=== PATIENT | male | born 1955 | race Caucasian/White ===

== ENCOUNTER 2016-12-17 15:15 | Inpatient (IN) | payer MEDICARE, OTHER ==
[~2016-12-17] VITALS: Ht 185.4 cm; Wt 110.7 kg
[2016-12-17] MEDS ORDERED: SODIUM CHLORIDE 0.9% 1,000 ML IV ONE (15:34)
[2016-12-17] MEDS ORDERED: LISI2.5T PO (15:40)
[2016-12-17] MEDS ORDERED: CITA10TA4 PO (15:40)
[2016-12-17] MEDS ORDERED: POTA20PA PO (15:40)
[2016-12-17] MEDS ORDERED: GABA300C10 PO (15:40)
[2016-12-17] MEDS ORDERED: ATOR80TA75 PO (15:40)
[2016-12-17] MEDS ORDERED: FURO20TA3 PO (15:40)
[2016-12-17] MEDS ORDERED: THIAMINE 100 MG/ML, 2ML ONE (15:43)
[2016-12-17] MEDS ORDERED: SODIUM CHLORIDE FLUSH 10ML SYR IVF ONE (16:00)
[2016-12-17] MEDS ORDERED: THIAMINE 100 MG/ML, 2ML IM ONE (16:00)
[2016-12-17] MEDS ORDERED: SODIUM CHLORIDE 0.9% 1,000ML IVBOLUS ONE (16:00)
[2016-12-17 16:13] LABS: HEMOGLOBIN 11.3 g/dL (13.7-18.0)
[2016-12-17 16:25] LABS: ASPARTATE AMINO TRANSFERASE 88 U/L (15-37); BLOOD UREA NITROGEN 10 mg/dL (7-18)
[2016-12-17 16:40] LABS: IS PT STATUS REG ER OR PRE ER? YES
[2016-12-17 16:50] LABS: DIFF TOTAL CELLS COUNTED 100 CELL DIFF
[2016-12-17 16:58] LABS: ANISOCYTOSIS 2+; MICROCYTOSIS 1+
[2016-12-17 16:59] LABS: LARGE PLATELETS 1+; VERIFY COUNTS? YES
[2016-12-17] MEDS ORDERED: PIPERACILLIN/TAZO/PMX 3.375GM 50 ML IV ONE (17:30)
[2016-12-17] MEDS ORDERED: PIPERACILLIN/TAZO/PMX 3.375GM 50 ML ONE (17:33)
[2016-12-17 17:36] LABS: DAU SCREEN DISCLAIMER
[2016-12-17] MEDS ORDERED: METH-356 PO (18:36)
[2016-12-17] MEDS: NOREPINEPHRINE 4 MG in SODIUM CHLORIDE 0.9% 246 ML IV PRN ×2 (19:53→20:28)
[2016-12-17] MEDS: SODIUM CHLORIDE 0.9% 1,000 ML IV SCH ×2 (20:10→21:24)
[2016-12-17] MEDS ORDERED: POLYETHYLENE GLYCOL 17 GM PACKET PO PRN (20:30)
[2016-12-17] MEDS: AMPICILLIN/SULBACTAM 3 GM in SODIUM CHLORIDE 0.9% 100 ML IV SCH (20:30)
[2016-12-17] MEDS ORDERED: DOCUSATE 100 MG CAPSULE PO PRN (20:30)
[2016-12-17] MEDS ORDERED: BISACODYL 10 MG SUPP PR PRN (20:30)
[2016-12-17] MEDS ORDERED: ONDANSETRON ODT 4 MG PO PRN (20:30)
[2016-12-17] MEDS ORDERED: AZITHROMYCIN 500 MG in SODIUM CHLORIDE 0.9% 250 ML IV SCH (20:30)
[2016-12-17] MEDS ORDERED: LABETALOL 5MG/ML, 20ML IV PRN (20:30)
[2016-12-17] MEDS ORDERED: ACETAMINOPHEN 325 MG TABLET PO PRN (20:30)
[2016-12-17] MEDS: ATORVASTATIN 80 MG TABLET PO SCH (21:00)
[2016-12-17] MEDS: DOXYCYCLINE 100 MG in DEXTROSE 5% 250 ML IV SCH (21:33)
[2016-12-17] MEDS: ENOXAPARIN 40 MG/0.4 ML SQ SCH (22:38)
[2016-12-17] MEDS: GABAPENTIN 300 MG CAPSULE PO SCH (22:38)
[2016-12-17] MEDS: NICOTINE 14MG/24 HR PATCH.TD24 TD SCH (22:39)
[2016-12-18] MEDS: AMPICILLIN/SULBACTAM 3 GM in SODIUM CHLORIDE 0.9% 100 ML IV SCH ×4 (02:37→20:16)
[2016-12-18 04:00] VITALS: BP 89/64
[2016-12-18] MEDS ORDERED: NOREPINEPHRINE 4 MG in SODIUM CHLORIDE 0.9% 246 ML IV PRN (05:00)
[2016-12-18 05:25] LABS: HEMOGLOBIN 9.9 g/dL (13.7-18.0)
[2016-12-18] MEDS: ALBUMIN HUMAN 25% 100 ML IV SCH ×3 (05:33→20:17)
[2016-12-18 05:43] LABS: ASPARTATE AMINO TRANSFERASE 71 U/L (15-37); BLOOD UREA NITROGEN 7 mg/dL (7-18); TOTAL IRON BINDING CAPACITY 92 mcg/dL (250-450)
[2016-12-18 06:13] LABS: DIFF TOTAL CELLS COUNTED 100 CELL DIFF
[2016-12-18 06:17] LABS: ANISOCYTOSIS 1+
[2016-12-18 06:18] LABS: LARGE PLATELETS 1+
[2016-12-18 06:32] LABS: VERIFY COUNTS? YES
[2016-12-18] MEDS ORDERED: MAGNESIUM SULFATE PMX 4GM/100M 100 ML IV ONE (08:00)
[2016-12-18] MEDS ORDERED: INSULIN REGULAR 100 UNITS/ML, 3ML VIAL ONE (08:12)
[2016-12-18] MEDS: POTASSIUM CHLORIDE 20 MEQ, MAGNESIUM SULFATE 1 GM, FOLIC ACID 1 MG, THIAMINE 100 MG, MV... IV SCH (09:16)
[2016-12-18] MEDS: POTASSIUM CHLORIDE 20 MEQ TAB.ER.PRT PO SCH ×2 (09:17→16:25)
[2016-12-18] MEDS: DOXYCYCLINE 100 MG in DEXTROSE 5% 250 ML IV SCH ×2 (09:17→20:17)
[2016-12-18] MEDS: GABAPENTIN 300 MG CAPSULE PO SCH ×3 (09:18→20:18)
[2016-12-18] MEDS: CITALOPRAM 10 MG TABLET PO SCH (09:18)
[2016-12-18] MEDS: THIAMINE 100MG TABLET PO SCH (09:18)
[2016-12-18] MEDS: FOLIC ACID 1 MG TABLET PO SCH (09:18)
[2016-12-18] MEDS: METHADONE 10 MG TABLET PO SCH (09:23)
[2016-12-18] MEDS: NOREPINEPHRINE 8 MG in SODIUM CHLORIDE 0.9% 246 ML IV PRN ×2 (12:16→18:59)
[2016-12-18] MEDS ORDERED: CALCIUM CHLORIDE 13.6 MEQ in SODIUM CHLORIDE 0.9% 100 ML IV ONE (17:30)
[2016-12-18] MEDS ORDERED: LABETALOL 5MG/ML, 20ML IV PRN (19:44)
[2016-12-18] MEDS ORDERED: LIDOCAINE GEL 2%, 5ML TP ONE (20:00)
[2016-12-18] MEDS ORDERED: SODIUM CHLORIDE 0.9% 1,000 ML IV SCH (20:10)
[2016-12-18] MEDS: NICOTINE 14MG/24 HR PATCH.TD24 TD SCH (20:17)
[2016-12-18] MEDS: ENOXAPARIN 40 MG/0.4 ML SQ SCH (20:17)
[2016-12-18] MEDS: ATORVASTATIN 80 MG TABLET PO SCH (20:18)
[2016-12-18] MEDS: OMEPRAZOLE 20 MG CAPSULE.DR PO SCH (20:18)
[2016-12-19] MEDS: NOREPINEPHRINE 8 MG in SODIUM CHLORIDE 0.9% 246 ML IV PRN ×2 (00:01→22:00)
[2016-12-19 00:09] LABS: ASPARTATE AMINO TRANSFERASE 49 U/L (15-37)
[2016-12-19 00:11] LABS: BLOOD UREA NITROGEN 4 mg/dL (7-18)
[2016-12-19] MEDS ORDERED: CALCIUM CHLORIDE 13.6 MEQ in SODIUM CHLORIDE 0.9% 100 ML IV ONE (00:30)
[2016-12-19] MEDS ORDERED: POTASSIUM CHLORIDE 40 MEQ in SODIUM CHLORIDE 0.9% 100 ML IV ONE (00:30)
[2016-12-19] MEDS: LORazepam 2 MG/ML, 1ML IVPush PRN (02:49)
[2016-12-19] MEDS: AMPICILLIN/SULBACTAM 3 GM in SODIUM CHLORIDE 0.9% 100 ML IV SCH ×4 (02:49→19:28)
[2016-12-19] MEDS: ALBUMIN HUMAN 25% 100 ML IV SCH ×3 (04:54→21:23)
[2016-12-19 05:09] LABS: ASPARTATE AMINO TRANSFERASE 44 U/L (15-37); BLOOD UREA NITROGEN 4 mg/dL (7-18)
[2016-12-19 05:45] VITALS: BP 99/56
[2016-12-19 06:31] LABS: DIFF TOTAL CELLS COUNTED 100 CELL DIFF
[2016-12-19 06:36] LABS: ANISOCYTOSIS 1+
[2016-12-19 06:38] LABS: VERIFY COUNTS? YES
[2016-12-19] MEDS: DOXYCYCLINE 100 MG in DEXTROSE 5% 250 ML IV SCH ×2 (07:36→19:58)
[2016-12-19] MEDS: METHADONE 10 MG TABLET PO SCH (07:41)
[2016-12-19] MEDS ORDERED: SUCCINYLCHOLINE 20 MG/ML, 10ML ONE (08:00)
[2016-12-19] MEDS ORDERED: ETOMIDATE 20 MG/10 ML ONE (08:00)
[2016-12-19] MEDS: POTASSIUM CHLORIDE 20 MEQ, MAGNESIUM SULFATE 1 GM, FOLIC ACID 1 MG, THIAMINE 100 MG, MV... IV SCH (08:00)
[2016-12-19] MEDS: GABAPENTIN 300 MG CAPSULE PO SCH ×3 (09:11→19:57)
[2016-12-19] MEDS: FOLIC ACID 1 MG TABLET PO SCH (09:11)
[2016-12-19] MEDS: OMEPRAZOLE 20 MG CAPSULE.DR PO SCH ×2 (09:11→19:57)
[2016-12-19] MEDS: POTASSIUM CHLORIDE 20 MEQ TAB.ER.PRT PO SCH (09:11)
[2016-12-19] MEDS: CITALOPRAM 10 MG TABLET PO SCH (09:11)
[2016-12-19] MEDS: THIAMINE 100MG TABLET PO SCH (09:11)
[2016-12-19] MEDS: FUROSEMIDE 20 MG/2 ML IV SCH ×2 (09:44→16:08)
[2016-12-19] MEDS ORDERED: MAGNESIUM SULFATE PMX 2GM/50ML 50 ML IV ONE (10:00)
[2016-12-19 11:45] LABS: ABG COLLECTION SITE RIGHT RADIAL; COLLATERAL CIRCULATION TESTING NORMAL
[2016-12-19] MEDS ORDERED: FUROSEMIDE 20 MG/2 ML IV ONE (12:00)
[2016-12-19] MEDS ORDERED: METOLAZONE 5 MG TABLET PO ONE (13:30)
[2016-12-19] MEDS ORDERED: LIDOCAINE-MPF 1%, 2ML ENDO PRN (15:30)
[2016-12-19] MEDS ORDERED: LACTULOSE 20 GM/30 ML UDC NG PRN (15:30)
[2016-12-19] MEDS ORDERED: PHARMACY MAY ADJ FOR RENAL FX MC SCH (15:30)
[2016-12-19 15:49] LABS: ABG COLLECTION SITE RIGHT RADIAL; COLLATERAL CIRCULATION TESTING NOT DOCUMENTED
[2016-12-19] MEDS: PROPOFOL 100 ML IV PRN ×2 (16:49→21:18)
[2016-12-19] MEDS: POTASSIUM CHLORIDE 20 MEQ PACKET PO SCH (17:01)
[2016-12-19] MEDS: ENOXAPARIN 40 MG/0.4 ML SQ SCH (19:58)
[2016-12-19] MEDS: NICOTINE 14MG/24 HR PATCH.TD24 TD SCH (19:58)
[2016-12-19] MEDS: ATORVASTATIN 80 MG TABLET PO SCH (19:58)
[2016-12-19] MEDS: SODIUM CHLORIDE 0.9% 1,000 ML IV SCH (20:10)
[2016-12-19] MEDS: ALBUTEROL SULFATE 2.5 MG/3 ML NPPB SCH (22:48)
[2016-12-20] MEDS: AMPICILLIN/SULBACTAM 3 GM in SODIUM CHLORIDE 0.9% 100 ML IV SCH ×4 (02:21→19:53)
[2016-12-20] MEDS: FUROSEMIDE 20 MG/2 ML IV SCH ×3 (02:21→18:29)
[2016-12-20] MEDS: ALBUTEROL SULFATE 2.5 MG/3 ML NPPB SCH ×6 (02:48→21:40)
[2016-12-20 03:50] VITALS: BP 91/68
[2016-12-20 04:35] LABS: ASPARTATE AMINO TRANSFERASE 26 U/L (15-37); BLOOD UREA NITROGEN 4 mg/dL (7-18)
[2016-12-20 04:48] LABS: ABG COLLECTION SITE RIGHT RADIAL; COLLATERAL CIRCULATION TESTING NORMAL
[2016-12-20] MEDS: ALBUMIN HUMAN 25% 100 ML IV SCH ×3 (05:13→21:59)
[2016-12-20] MEDS: PROPOFOL 100 ML IV PRN ×3 (05:13→20:11)
[2016-12-20] MEDS: DOXYCYCLINE 100 MG in DEXTROSE 5% 250 ML IV SCH ×2 (08:24→20:49)
[2016-12-20] MEDS: POTASSIUM CHLORIDE 20 MEQ PACKET PO SCH ×2 (08:24→18:29)
[2016-12-20] MEDS: METHADONE 10 MG TABLET PO SCH (09:00)
[2016-12-20] MEDS: FOLIC ACID 1 MG TABLET PO SCH (09:56)
[2016-12-20] MEDS: THIAMINE 100MG TABLET PO SCH (09:56)
[2016-12-20] MEDS: CITALOPRAM 10 MG TABLET PO SCH (09:56)
[2016-12-20] MEDS: GABAPENTIN 300 MG CAPSULE PO SCH ×3 (09:56→19:53)
[2016-12-20] MEDS: OMEPRAZOLE 20 MG CAPSULE.DR PO SCH ×2 (09:56→19:53)
[2016-12-20] MEDS: NOREPINEPHRINE 8 MG in SODIUM CHLORIDE 0.9% 246 ML IV PRN ×2 (09:58→20:10)
[2016-12-20] MEDS: POTASSIUM CHLORIDE 20 MEQ, MAGNESIUM SULFATE 1 GM, FOLIC ACID 1 MG, THIAMINE 100 MG, MV... IV SCH (11:23)
[2016-12-20] MEDS: ATORVASTATIN 80 MG TABLET PO SCH (19:52)
[2016-12-20] MEDS: NICOTINE 14MG/24 HR PATCH.TD24 TD SCH (19:53)
[2016-12-20] MEDS: ENOXAPARIN 40 MG/0.4 ML SQ SCH (19:53)
[2016-12-20] MEDS: SODIUM CHLORIDE 0.9% 1,000 ML IV SCH (20:50)
[2016-12-21] MEDS: FUROSEMIDE 20 MG/2 ML IV SCH (01:05)
[2016-12-21] MEDS: ALBUTEROL SULFATE 2.5 MG/3 ML NPPB SCH ×6 (02:00→22:19)
[2016-12-21] MEDS: AMPICILLIN/SULBACTAM 3 GM in SODIUM CHLORIDE 0.9% 100 ML IV SCH ×4 (02:07→20:19)
[2016-12-21] MEDS: PROPOFOL 100 ML IV PRN ×4 (02:26→23:46)
[2016-12-21 04:18] LABS: ABG COLLECTION SITE LEFT RADIAL; COLLATERAL CIRCULATION TESTING NORMAL
[2016-12-21 04:31] VITALS: BP 94/66
[2016-12-21 04:33] LABS: BLOOD UREA NITROGEN 6 mg/dL (7-18)
[2016-12-21 04:34] LABS: HEMOGLOBIN 9.6 g/dL (13.7-18.0)
[2016-12-21] MEDS: ALBUMIN HUMAN 25% 100 ML IV SCH (04:48)
[2016-12-21] MEDS: NOREPINEPHRINE 8 MG in SODIUM CHLORIDE 0.9% 246 ML IV PRN ×2 (04:52→22:17)
[2016-12-21] MEDS: CITALOPRAM 10 MG TABLET PO SCH (08:09)
[2016-12-21] MEDS: DOXYCYCLINE 100 MG in DEXTROSE 5% 250 ML IV SCH ×2 (08:09→21:05)
[2016-12-21] MEDS: GABAPENTIN 300 MG CAPSULE PO SCH ×3 (08:09→20:18)
[2016-12-21] MEDS: FOLIC ACID 1 MG TABLET PO SCH (08:09)
[2016-12-21] MEDS: THIAMINE 100MG TABLET PO SCH (08:09)
[2016-12-21] MEDS: OMEPRAZOLE 20 MG CAPSULE.DR PO SCH (08:09)
[2016-12-21] MEDS: POTASSIUM CHLORIDE 20 MEQ PACKET PO SCH ×2 (08:09→17:07)
[2016-12-21] MEDS: METHADONE 10 MG TABLET PO SCH (08:09)
[2016-12-21] MEDS ORDERED: MAGNESIUM SULFATE PMX 2GM/50ML 50 ML IV ONE ×2 (09:00→17:00)
[2016-12-21] MEDS: PANTOPRAZOLE 40 MG IV IVPush SCH ×2 (11:44→20:18)
[2016-12-21] MEDS ORDERED: CALCIUM CHLORIDE 13.6 MEQ in SODIUM CHLORIDE 0.9% 100 ML IV ONE (17:00)
[2016-12-21] MEDS: ATORVASTATIN 80 MG TABLET PO SCH (20:18)
[2016-12-21] MEDS: QUETIAPINE 25MG TABLET PO SCH (20:18)
[2016-12-21] MEDS: ENOXAPARIN 40 MG/0.4 ML SQ SCH (20:18)
[2016-12-21] MEDS: NICOTINE 14MG/24 HR PATCH.TD24 TD SCH (20:19)
[2016-12-21] MEDS ORDERED: SODIUM CHLORIDE 0.9% 1,000ML IVBOLUS ONE (22:00)
[2016-12-21] MEDS ORDERED: VASOPRESSIN 100 UNIT in SODIUM CHLORIDE 0.9% 495 ML IV PRN (22:00)
[2016-12-21] MEDS: SODIUM CHLORIDE 0.9% 1,000 ML IV SCH (23:47)
[2016-12-22] MEDS: ALBUTEROL SULFATE 2.5 MG/3 ML NPPB SCH ×6 (01:47→22:33)
[2016-12-22] MEDS: AMPICILLIN/SULBACTAM 3 GM in SODIUM CHLORIDE 0.9% 100 ML IV SCH ×4 (02:51→19:47)
[2016-12-22] MEDS: NOREPINEPHRINE 8 MG in SODIUM CHLORIDE 0.9% 246 ML IV PRN ×3 (02:52→20:10)
[2016-12-22] MEDS ORDERED: OMNIPAQUE 350 MG/ML, 75ML BOTTLE ONE (03:26)
[2016-12-22] MEDS: PROPOFOL 100 ML IV PRN ×3 (03:32→20:12)
[2016-12-22 04:00] VITALS: BP 97/71
[2016-12-22 04:17] LABS: HEMOGLOBIN 9.8 g/dL (13.7-18.0)
[2016-12-22 04:18] LABS: ABG COLLECTION SITE RIGHT RADIAL
[2016-12-22 04:19] LABS: COLLATERAL CIRCULATION TESTING NORMAL
[2016-12-22 04:26] LABS: BLOOD UREA NITROGEN 7 mg/dL (7-18)
[2016-12-22] MEDS: POTASSIUM CHLORIDE 20 MEQ PACKET PO SCH ×2 (09:12→17:36)
[2016-12-22] MEDS: GABAPENTIN 300 MG CAPSULE PO SCH ×3 (09:12→21:11)
[2016-12-22] MEDS: CITALOPRAM 10 MG TABLET PO SCH (09:12)
[2016-12-22] MEDS: PANTOPRAZOLE 40 MG IV IVPush SCH ×2 (09:12→21:11)
[2016-12-22] MEDS: THIAMINE 100MG TABLET PO SCH (09:12)
[2016-12-22] MEDS: FOLIC ACID 1 MG TABLET PO SCH (09:13)
[2016-12-22] MEDS: QUETIAPINE 25MG TABLET PO SCH ×2 (09:13→21:11)
[2016-12-22] MEDS: METHADONE 10 MG TABLET PO SCH (09:22)
[2016-12-22] MEDS: DOXYCYCLINE 100 MG in DEXTROSE 5% 250 ML IV SCH ×2 (10:19→21:11)
[2016-12-22] MEDS ORDERED: SODIUM CHLORIDE 0.9%, 500ML IVBOLUS ONE ×2 (11:00→16:00)
[2016-12-22] MEDS: SODIUM CHLORIDE 0.9% 1,000 ML IV SCH (20:10)
[2016-12-22] MEDS: ATORVASTATIN 80 MG TABLET PO SCH (21:11)
[2016-12-22] MEDS: NICOTINE 14MG/24 HR PATCH.TD24 TD SCH (21:12)
[2016-12-22] MEDS: ENOXAPARIN 40 MG/0.4 ML SQ SCH (21:12)
[2016-12-23] MEDS: AMPICILLIN/SULBACTAM 3 GM in SODIUM CHLORIDE 0.9% 100 ML IV SCH ×4 (02:02→20:51)
[2016-12-23] MEDS: ALBUTEROL SULFATE 2.5 MG/3 ML NPPB SCH ×6 (02:35→22:19)
[2016-12-23] MEDS: PROPOFOL 100 ML IV PRN ×3 (03:27→16:22)
[2016-12-23 04:00] VITALS: BP 100/60
[2016-12-23 04:53] LABS: BLOOD UREA NITROGEN 9 mg/dL (7-18)
[2016-12-23 06:04] LABS: ABG COLLECTION SITE RIGHT RADIAL; COLLATERAL CIRCULATION TESTING NORMAL
[2016-12-23] MEDS: NOREPINEPHRINE 8 MG in SODIUM CHLORIDE 0.9% 246 ML IV PRN (07:48)
[2016-12-23] MEDS ORDERED: MAGNESIUM SULFATE PMX 4GM/100M 100 ML IVPB ONE (09:00)
[2016-12-23] MEDS ORDERED: FUROSEMIDE 20 MG/2 ML IV ONE (09:00)
[2016-12-23] MEDS: DOXYCYCLINE 100 MG in DEXTROSE 5% 250 ML IV SCH ×2 (09:08→21:48)
[2016-12-23] MEDS: PANTOPRAZOLE 40 MG IV IVPush SCH ×2 (09:08→20:52)
[2016-12-23] MEDS: POTASSIUM CHLORIDE 20 MEQ PACKET PO SCH ×2 (09:08→16:17)
[2016-12-23] MEDS: CITALOPRAM 10 MG TABLET PO SCH (09:09)
[2016-12-23] MEDS: FOLIC ACID 1 MG TABLET PO SCH (09:09)
[2016-12-23] MEDS: GABAPENTIN 300 MG CAPSULE PO SCH ×3 (09:09→20:56)
[2016-12-23] MEDS: THIAMINE 100MG TABLET PO SCH (09:10)
[2016-12-23] MEDS: QUETIAPINE 25MG TABLET PO SCH ×2 (09:10→20:56)
[2016-12-23] MEDS: METHADONE 10 MG TABLET PO SCH (09:31)
[2016-12-23] MEDS: NICOTINE 14MG/24 HR PATCH.TD24 TD SCH (20:51)
[2016-12-23] MEDS: ENOXAPARIN 40 MG/0.4 ML SQ SCH (20:52)
[2016-12-23] MEDS: ATORVASTATIN 80 MG TABLET PO SCH (20:56)
[2016-12-24] MEDS: PROPOFOL 100 ML IV PRN ×4 (00:12→23:20)
[2016-12-24] MEDS: NOREPINEPHRINE 8 MG in SODIUM CHLORIDE 0.9% 246 ML IV PRN ×3 (00:59→23:20)
[2016-12-24] MEDS: ALBUTEROL SULFATE 2.5 MG/3 ML NPPB SCH ×6 (02:20→22:37)
[2016-12-24] MEDS: AMPICILLIN/SULBACTAM 3 GM in SODIUM CHLORIDE 0.9% 100 ML IV SCH ×2 (03:50→08:32)
[2016-12-24 04:31] LABS: HEMOGLOBIN 9.2 g/dL (13.7-18.0)
[2016-12-24 05:26] LABS: ABG COLLECTION SITE LEFT RADIAL; COLLATERAL CIRCULATION TESTING NORMAL
[2016-12-24 06:34] LABS: BLOOD UREA NITROGEN 9 mg/dL (7-18)
[2016-12-24] MEDS: SODIUM CHLORIDE 0.9% 1,000 ML IV SCH (08:00)
[2016-12-24] MEDS: FOLIC ACID 1 MG TABLET PO SCH (09:24)
[2016-12-24] MEDS: GABAPENTIN 300 MG CAPSULE PO SCH ×3 (09:24→21:40)
[2016-12-24] MEDS: METHADONE 10 MG TABLET PO SCH (09:24)
[2016-12-24] MEDS: THIAMINE 100MG TABLET PO SCH (09:24)
[2016-12-24] MEDS: QUETIAPINE 25MG TABLET PO SCH ×2 (09:25→21:39)
[2016-12-24] MEDS: CITALOPRAM 10 MG TABLET PO SCH (09:25)
[2016-12-24] MEDS: PANTOPRAZOLE 40 MG IV IVPush SCH ×2 (09:25→21:38)
[2016-12-24] MEDS: POTASSIUM CHLORIDE 20 MEQ PACKET PO SCH ×2 (09:25→17:27)
[2016-12-24] MEDS: DOXYCYCLINE 100 MG in DEXTROSE 5% 250 ML IV SCH (09:26)
[2016-12-24] MEDS ORDERED: PHARMACOKINETIC CONSULTATION MC ONE (12:30)
[2016-12-24] MEDS ORDERED: PHARMACOKINETIC MONITORING MC PRN (12:30)
[2016-12-24] MEDS ORDERED: VANCOMYCIN PER PHARMACY MC PRN (12:30)
[2016-12-24] MEDS: PIPERACILLIN/TAZO/PMX 4.5GM 100 ML IV SCH ×2 (12:35→18:27)
[2016-12-24] MEDS: VANCOMYCIN 2,000 MG in SODIUM CHLORIDE 0.9% 500 ML IV SCH (13:38)
[2016-12-24] MEDS: NICOTINE 14MG/24 HR PATCH.TD24 TD SCH (20:17)
[2016-12-24] MEDS: ENOXAPARIN 40 MG/0.4 ML SQ SCH (20:18)
[2016-12-24] MEDS: LORazepam 2 MG/ML, 1ML IVPush PRN (20:22)
[2016-12-24] MEDS: ATORVASTATIN 80 MG TABLET PO SCH (21:38)
[2016-12-25] MEDS: PIPERACILLIN/TAZO/PMX 4.5GM 100 ML IV SCH ×2 (00:12→05:55)
[2016-12-25] MEDS: VANCOMYCIN 2,000 MG in SODIUM CHLORIDE 0.9% 500 ML IV SCH (01:18)
[2016-12-25] MEDS: ALBUTEROL SULFATE 2.5 MG/3 ML NPPB SCH ×3 (02:15→10:56)
[2016-12-25 03:36] LABS: HEMOGLOBIN 8.9 g/dL (13.7-18.0)
[2016-12-25 03:39] LABS: BLOOD UREA NITROGEN 10 mg/dL (7-18)
[2016-12-25] MEDS: PROPOFOL 100 ML IV PRN (04:18)
[2016-12-25 04:32] LABS: ABG COLLECTION SITE RIGHT RADIAL; COLLATERAL CIRCULATION TESTING NORMAL
[2016-12-25 05:30] VITALS: BP 104/63
[2016-12-25] MEDS: NOREPINEPHRINE 8 MG in SODIUM CHLORIDE 0.9% 246 ML IV PRN (06:51)
[2016-12-25] MEDS: CITALOPRAM 10 MG TABLET PO SCH (08:37)
[2016-12-25] MEDS: PANTOPRAZOLE 40 MG IV IVPush SCH (08:37)
[2016-12-25] MEDS: QUETIAPINE 25MG TABLET PO SCH (08:37)
[2016-12-25] MEDS: FOLIC ACID 1 MG TABLET PO SCH (08:37)
[2016-12-25] MEDS: POTASSIUM CHLORIDE 20 MEQ PACKET PO SCH (08:37)
[2016-12-25] MEDS: GABAPENTIN 300 MG CAPSULE PO SCH (08:37)
[2016-12-25] MEDS: THIAMINE 100MG TABLET PO SCH (08:37)
[2016-12-25] MEDS: METHADONE 10 MG TABLET PO SCH (08:37)
[2016-12-25] MEDS ORDERED: LORazepam 10 MG in DEXTROSE 5% 245 ML IV SCH (13:00)
[2016-12-25] MEDS ORDERED: LORazepam 20 MG in DEXTROSE 5% 240 ML IV SCH (15:27)
[2016-12-25] MEDS: LORazepam 20 MG in DEXTROSE 5% 240 ML IV SCH ×2 (15:37→19:31)
[2016-12-25] MEDS: DEXTROSE 5% IV SCH (23:06)
[2016-12-25] MEDS: LORAZEPAM IV SCH (23:06)
[2016-12-26] MEDS: ATROPINE OPHTH SOLN 1%, 2ML PO PRN ×2 (00:57→09:42)
[2016-12-26] MEDS: LORAZEPAM IV SCH ×2 (04:41→10:12)
[2016-12-26] MEDS: DEXTROSE 5% IV SCH ×2 (04:41→10:12)
[2016-12-26] MEDS ORDERED: SCOPOLAMINE PATCH, 1.5MG PATCH.TD72 TD SCH (09:00)
[2016-12-26] MEDS ORDERED: HYDROmorphone 10 MG in SODIUM CHLORIDE 0.9% 245 ML IV PRN (11:00)
== END 2016-12-26 13:50 | disposition expired | DRG 870 ==
LOC: ED 18:06 → EDIP 20:10 → CCU 20:58 → 3NW 12-25 17:38
PROVIDERS: ADMIT Internal Medicine; ATTEND Internal Medicine
PROC: 0T9B70Z Drainage of Bladder with Drainage Device, Via Natural or Artificial Opening (ICD-10-PCS; 2016-12-17)
PROC: 0BH17EZ Insertion of Endotracheal Airway into Trachea, Via Natural or Artificial Opening (ICD-10-PCS; principal; 2016-12-19)
PROC: 5A1955Z Respiratory Ventilation, Greater than 96 Consecutive Hours (ICD-10-PCS; 2016-12-19)
DX: A41.9 Sepsis, unspecified organism (principal); R65.21 Severe sepsis with septic shock; G93.40 Encephalopathy, unspecified; J96.00 Acute respiratory failure, unspecified whether with hypoxia or hypercapnia; J18.9 Pneumonia, unspecified organism; M62.82 Rhabdomyolysis; F10.239 Alcohol dependence with withdrawal, unspecified; Z99.11 Dependence on respirator [ventilator] status; M86.9 Osteomyelitis, unspecified; S02.609A Fracture of mandible, unspecified, initial encounter for closed fracture; E78.5 Hyperlipidemia, unspecified; D53.9 Nutritional anemia, unspecified; E11.9 Type 2 diabetes mellitus without complications; E83.42 Hypomagnesemia; E86.1 Hypovolemia; E87.6 Hypokalemia; F12.10 Cannabis abuse, uncomplicated; F17.200 Nicotine dependence, unspecified, uncomplicated; I11.0 Hypertensive heart disease with heart failure; I50.9 Heart failure, unspecified; G89.29 Other chronic pain; K02.9 Dental caries, unspecified; K04.7 Periapical abscess without sinus; K05.10 Chronic gingivitis, plaque induced; Z51.5 Encounter for palliative care; L98.8 Other specified disorders of the skin and subcutaneous tissue; R26.2 Difficulty in walking, not elsewhere classified; M19.90 Unspecified osteoarthritis, unspecified site; Z66 Do not resuscitate; W19.XXXA Unspecified fall, initial encounter; Y92.009 Unspecified place in unspecified non-institutional (private) residence as the place of occurrence of the external cause; Z63.8 Other specified problems related to primary support group; Z80.42 Family history of malignant neoplasm of prostate; Z71.6 Tobacco abuse counseling; Z71.41 Alcohol abuse counseling and surveillance of alcoholic
CPT/HCPCS: 36415; 36600; 70450; 70487; 71010; 80048; 80053; 80307; 81003; 82140; 82550; 82607; 82728; 82746; 82803; 82805; 82962; 83036; 83540; 83550; 83605; 83735; 84100; 84132; 84439; 84443; 84478; 84484; 85025; 85610; 85730; 87040; 87070; 87075; 87081; 87205; 87324; 93005; 94002; 94003; 94640; 96361; 96365; 96366; 96368; 96372; J0295; J1650; J2060; J2543; J2704; J3370; J3411; J3475; J3480; J7060; J7070; J7613; P9047; Q9967; C9113; J0330; J1940; J2270; J7030; J7040; J7050